=== PATIENT | male | born 1935 | race Caucasian/White ===

== ENCOUNTER 2021-12-28 11:10 | Inpatient (IN) | payer MEDICARE, OTHER ==
[~2021-12-28] VITALS: Ht 165.1 cm; Wt 87.5 kg
[2021-12-28] MEDS ORDERED: LISINOPRIL5 MG PO (11:50)
[2021-12-28] MEDS ORDERED: METOPROLOL TART50 MG PO (11:50)
[2021-12-28] MEDS ORDERED: ASPIRIN81 MG PO (11:50)
[2021-12-28] MEDS ORDERED: FOLIC ACID0.4 MG PO (11:50)
[2021-12-28] MEDS ORDERED: POTASSIUM CHLO10 ME1 PO (11:50)
[2021-12-28] MEDS ORDERED: B12 ACTIVE1000 MCG PO (11:50)
[2021-12-28] MEDS ORDERED: FUROSEMIDE40 MG PO (11:54)
[2021-12-28] MEDS ORDERED: SIMVASTATIN40 MG PO (11:54)
[2021-12-28] MEDS ORDERED: CLOPIDOGREL75 MG PO (11:54)
[2021-12-28] MEDS ORDERED: QUETIAPINE FUMA25 MG PO ×2 (11:54)
[2021-12-28] MEDS ORDERED: GLIPIZIDE ER5 MG PO (11:54)
[2021-12-28] MEDS ORDERED: METFORMIN HCL500 MG PO (11:54)
[2021-12-28] MEDS ORDERED: LEVOTHYROXINE75 MCG PO (11:54)
[2021-12-28 11:59] LABS: BASOPHILS % 0.5 % (0.0-1.0); EOSINOPHILS # (AUTO) 0.1 (0.0-0.4); EOSINOPHILS % 1.6 % (0.0-6.0); HEMOGLOBIN 15.4 g/dL (14.0-18.0); LYMPHOCYTES # (AUTO) 1.2 (1.0-3.2); LYMPHOCYTES % 15.2 % (18.0-39.1); MEAN CORPUSCULAR HEMOGLOBIN 30.4 pg (28-32); MEAN CORPUSCULAR HGB CONC 32.1 g/dL (31-35); MEAN CORPUSCULAR VOLUME 94.7 fL (81-99); MONOCYTES # (AUTO) 1.2 (0.2-0.8); MONOCYTES % 15.1 % (4.4-11.3); NEUTROPHILS # (AUTO) 5.1 (2.1-6.9); NEUTROPHILS % 67.1 % (38.7-80.0); PLATELET COUNT 239 x10e3/uL (140-360); RED BLOOD COUNT 5.07 x10e6/uL (4.3-5.7); RED CELL DISTRIBUTION WIDTH 16.4 % (11.7-14.4)
[2021-12-28 12:10] LABS: INR 1.16; PROTHROMBIN TIME 15.8 seconds (11.9-14.5)
[2021-12-28 12:11] LABS: PARTIAL THROMBOPLASTIN TIME 53.9 seconds (23.8-35.5)
[2021-12-28] MEDS ORDERED: LIDOCAINE JELLY 2% 10ML URO-JET ONE (12:13)
[2021-12-28] MEDS ORDERED: LIDOCAINE JELLY 2% 10ML URO-JET TOP ONE (12:15)
[2021-12-28 12:22] LABS: ALBUMIN 3.3 g/dL (3.5-5.0); ALBUMIN/GLOBULIN RATIO 0.8 (0.8-2.0); ANION GAP 17.6 mmol/L (8-16); CALCIUM 9.5 mg/dL (8.4-10.2); CREATININE, SERUM 2.31 mg/dL (0.72-1.25); POTASSIUM 4.6 mmol/L (3.5-5.1)
[2021-12-28 12:31] LABS: CREATINE KINASE MB 1.7 ng/mL (0-5.0)
[2021-12-28 12:44] LABS: CLARITY,URINE CLEAR (CLEAR); COLOR,URINE YELLOW (YELLOW); LEUKOCYTE ESTERASE ,URINE NEGATIVE (NEGATIVE); NITRITE,URINE NEGATIVE (NEGATIVE)
[2021-12-28 12:45] LABS: KETONES,URINE NEGATIVE (NEGATIVE); PROTEIN,URINE DIPSTICK 1+ (NEGATIVE); URINE UROBILINOGEN 0.2 mg/dL (0.2 - 1)
[2021-12-28] MEDS ORDERED: FUROSEMIDE INJ 10 MG/ML 4 ML VIAL IV ONE (13:00)
[2021-12-28 13:05] LABS: BACTERIA,URINE MODERATE /HPF; EPITHELIAL CELLS,URINE FEW /LPF; RENAL EPITHELIAL CELLS,URINE FEW; WBC,URINE (MAN) 0-5 /HPF (0-5)
[2021-12-28] MEDS ORDERED: ONDANSETRON HCL INJ 2MG/ML 2ML 2 MG/ML VIAL IV PRN (13:15)
[2021-12-28] MEDS: NYSTATIN 15 GM POWDER UD BTL TOP SCH (17:00)
[2021-12-28 18:00] VITALS: BP 117/75
[2021-12-28 18:02] VITALS: BP 117/75
[2021-12-28] MEDS ORDERED: vitamin d3 PO (18:12)
[2021-12-28] MEDS ORDERED: fenofibrate PO (18:12)
[2021-12-28 18:17] VITALS: BP 117/75
[2021-12-28 18:33] LABS: CREATINE KINASE MB 1.5 ng/mL (0-5.0)
[2021-12-28] MEDS ORDERED: METOPROLOL TARTRATE 50 MG TAB PO ONE (19:00)
[2021-12-28 19:30] VITALS: BP 110/78
[2021-12-28] MEDS: HYDROCODONE/APAP 5MG-325MG TAB PO PRN (19:58)
[2021-12-28] MEDS: FUROSEMIDE INJ 10 MG/ML 4 ML VIAL IV SCH (19:58)
[2021-12-29] VITALS (8 sets, daily range): BP systolic 96–129; BP diastolic 73–97
[2021-12-29 00:38] LABS: CREATINE KINASE MB 1.3 ng/mL (0-5.0)
[2021-12-29] MEDS: HYDROCODONE/APAP 5MG-325MG TAB PO PRN ×5 (00:48→22:35)
[2021-12-29 06:25] LABS: BASOPHILS % 0.4 % (0.0-1.0); EOSINOPHILS # (AUTO) 0.1 (0.0-0.4); EOSINOPHILS % 1.5 % (0.0-6.0); HEMATOCRIT 45.6 % (38.2-49.6); LYMPHOCYTES # (AUTO) 1.3 (1.0-3.2); LYMPHOCYTES % 17.8 % (18.0-39.1); MEAN CORPUSCULAR HEMOGLOBIN 30.5 pg (28-32); MEAN CORPUSCULAR HGB CONC 32.9 g/dL (31-35); MEAN CORPUSCULAR VOLUME 92.7 fL (81-99); MONOCYTES # (AUTO) 1.1 (0.2-0.8); MONOCYTES % 15.3 % (4.4-11.3); NEUTROPHILS # (AUTO) 4.7 (2.1-6.9); NEUTROPHILS % 64.3 % (38.7-80.0); PLATELET COUNT 234 x10e3/uL (140-360); RED BLOOD COUNT 4.92 x10e6/uL (4.3-5.7); RED CELL DISTRIBUTION WIDTH 16.3 % (11.7-14.4)
[2021-12-29 06:55] LABS: ALBUMIN 3.1 g/dL (3.5-5.0); ALBUMIN/GLOBULIN RATIO 0.8 (0.8-2.0); ANION GAP 18.3 mmol/L (8-16); CALCIUM 9.1 mg/dL (8.4-10.2); CHOL/HDL RATIO 3.9 (3.9-4.7); CREATININE, SERUM 2.38 mg/dL (0.72-1.25); POTASSIUM 4.3 mmol/L (3.5-5.1)
[2021-12-29 07:22] LABS: CREATINE KINASE MB 1.3 ng/mL (0-5.0)
[2021-12-29] MEDS: METOPROLOL TARTRATE 50 MG TAB PO SCH ×2 (09:00→17:36)
[2021-12-29] MEDS: FUROSEMIDE INJ 10 MG/ML 4 ML VIAL IV SCH ×2 (09:02→21:36)
[2021-12-29] MEDS: NYSTATIN 15 GM POWDER UD BTL TOP SCH ×2 (09:08→17:33)
[2021-12-30] VITALS (8 sets, daily range): BP systolic 106–134; BP diastolic 60–85
[2021-12-30] MEDS: LEVOTHYROXINE SODIUM 75 MCG TAB PO SCH (05:20)
[2021-12-30 06:28] LABS: BASOPHILS # (AUTO) 0.1 (0.0-0.1); BASOPHILS % 0.8 % (0.0-1.0); EOSINOPHILS # (AUTO) 0.3 (0.0-0.4); HEMATOCRIT 47.7 % (38.2-49.6); HEMOGLOBIN 15.1 g/dL (14.0-18.0); LYMPHOCYTES # (AUTO) 1.5 (1.0-3.2); LYMPHOCYTES % 21.1 % (18.0-39.1); MEAN CORPUSCULAR HEMOGLOBIN 30.3 pg (28-32); MEAN CORPUSCULAR HGB CONC 31.7 g/dL (31-35); MEAN CORPUSCULAR VOLUME 95.8 fL (81-99); MONOCYTES # (AUTO) 1.1 (0.2-0.8); MONOCYTES % 15.7 % (4.4-11.3); NEUTROPHILS # (AUTO) 4.1 (2.1-6.9); NEUTROPHILS % 58.1 % (38.7-80.0); PLATELET COUNT 220 x10e3/uL (140-360); RED BLOOD COUNT 4.98 x10e6/uL (4.3-5.7); RED CELL DISTRIBUTION WIDTH 16.5 % (11.7-14.4)
[2021-12-30 07:08] LABS: ANION GAP 17.1 mmol/L (8-16); CALCIUM 9.1 mg/dL (8.4-10.2); CREATININE, SERUM 2.27 mg/dL (0.72-1.25); POTASSIUM 4.1 mmol/L (3.5-5.1)
[2021-12-30] MEDS: FUROSEMIDE INJ 10 MG/ML 4 ML VIAL IV SCH ×2 (09:00→21:41)
[2021-12-30] MEDS: METOPROLOL TARTRATE 50 MG TAB PO SCH ×2 (09:05→16:28)
[2021-12-30] MEDS: NYSTATIN 15 GM POWDER UD BTL TOP SCH ×2 (09:09→16:33)
[2021-12-30] MEDS: HYDROCODONE/APAP 5MG-325MG TAB PO PRN ×2 (09:54→21:42)
[2021-12-30] MEDS ORDERED: ONDANSETRON HCL 4 MG ORAL DISINTEGRATING TAB PO PRN (11:30)
[2021-12-30 19:17] LABS: CREATININE,URINE RANDOM 40.57 mg/dL (63-166); TOTAL PROTEIN 24HR, URINE 281.1 mg/24hr (50-100); TOTAL PROTEIN, URINE 16.3 mg/dL (1-14)
[2021-12-31] VITALS (18 sets, daily range): BP systolic 104–126; BP diastolic 65–91
[2021-12-31] MEDS: LEVOTHYROXINE SODIUM 75 MCG TAB PO SCH (05:40)
[2021-12-31] MEDS: HYDROCODONE/APAP 5MG-325MG TAB PO PRN ×3 (05:40→17:53)
[2021-12-31 06:40] LABS: BASOPHILS # (AUTO) 0.1 (0.0-0.1); BASOPHILS % 0.7 % (0.0-1.0); EOSINOPHILS # (AUTO) 0.2 (0.0-0.4); EOSINOPHILS % 3.3 % (0.0-6.0); HEMATOCRIT 43.7 % (38.2-49.6); HEMOGLOBIN 14.7 g/dL (14.0-18.0); LYMPHOCYTES # (AUTO) 1.1 (1.0-3.2); LYMPHOCYTES % 15.7 % (18.0-39.1); MEAN CORPUSCULAR HEMOGLOBIN 30.3 pg (28-32); MEAN CORPUSCULAR HGB CONC 33.6 g/dL (31-35); MEAN CORPUSCULAR VOLUME 90.1 fL (81-99); MONOCYTES % 13.4 % (4.4-11.3); NEUTROPHILS # (AUTO) 4.7 (2.1-6.9); NEUTROPHILS % 66.6 % (38.7-80.0); PLATELET COUNT 216 x10e3/uL (140-360); RED BLOOD COUNT 4.85 x10e6/uL (4.3-5.7); RED CELL DISTRIBUTION WIDTH 16.1 % (11.7-14.4)
[2021-12-31 07:03] LABS: CALCIUM 9.1 mg/dL (8.4-10.2); CREATININE, SERUM 2.09 mg/dL (0.72-1.25)
[2021-12-31] MEDS: FUROSEMIDE INJ 10 MG/ML 4 ML VIAL IV SCH ×2 (08:07→21:05)
[2021-12-31] MEDS: METOPROLOL TARTRATE 50 MG TAB PO SCH ×2 (08:08→18:15)
[2021-12-31] MEDS: ACETYLCYSTEINE 200 MG/ML 4ML VIAL PO SCH ×2 (08:14→18:14)
[2021-12-31] MEDS: NYSTATIN 15 GM POWDER UD BTL TOP SCH ×2 (09:56→17:00)
[2021-12-31] MEDS ORDERED: DIPHENHYDRAMINE HCL INJ 50 MG/ML VIAL ONE (15:20)
[2021-12-31] MEDS ORDERED: HEPARIN SOD/SOD CHLORIDE 2,000 ML ONE (16:03)
[2021-12-31] MEDS ORDERED: FENTANYL CITRATE/PF 100MCG/2 ML INJ ONE (16:03)
[2021-12-31] MEDS ORDERED: LIDOCAINE HCL 2% LOCAL 20 ML VIAL ONE (16:03)
[2021-12-31] MEDS ORDERED: MIDAZOLAM HCL 2 MG/2 ML VIAL ONE (16:03)
[2021-12-31] MEDS ORDERED: SODIUM CHLORIDE 0.9% 1000ML 1,000 ML ONE (16:04)
[2021-12-31] MEDS ORDERED: IOPAMIDOL 370 MG/ML 100 ML INFUS..BTL INJ ONE (16:04)
[2021-12-31] MEDS ORDERED: HYDROCODONE/APAP 5MG-325MG TAB ONE (18:02)
[2021-12-31] MEDS ORDERED: ACETYLCYSTEINE 200 MG/ML 4ML VIAL PO SCH (21:00)
[2022-01-01] VITALS (7 sets, daily range): BP systolic 107–142; BP diastolic 77–107
[2022-01-01] MEDS: LEVOTHYROXINE SODIUM 75 MCG TAB PO SCH (05:54)
[2022-01-01 07:02] LABS: BASOPHILS # (AUTO) 0.1 (0.0-0.1); BASOPHILS % 0.7 % (0.0-1.0); EOSINOPHILS # (AUTO) 0.1 (0.0-0.4); EOSINOPHILS % 1.3 % (0.0-6.0); HEMATOCRIT 43.6 % (38.2-49.6); HEMOGLOBIN 14.7 g/dL (14.0-18.0); LYMPHOCYTES # (AUTO) 1.1 (1.0-3.2); LYMPHOCYTES % 13.2 % (18.0-39.1); MEAN CORPUSCULAR HEMOGLOBIN 30.3 pg (28-32); MEAN CORPUSCULAR HGB CONC 33.7 g/dL (31-35); MEAN CORPUSCULAR VOLUME 89.9 fL (81-99); MONOCYTES # (AUTO) 1.2 (0.2-0.8); MONOCYTES % 14.7 % (4.4-11.3); NEUTROPHILS # (AUTO) 5.7 (2.1-6.9); NEUTROPHILS % 69.6 % (38.7-80.0); PLATELET COUNT 218 x10e3/uL (140-360); RED BLOOD COUNT 4.85 x10e6/uL (4.3-5.7)
[2022-01-01 07:12] LABS: ANION GAP 15.7 mmol/L (8-16); CREATININE, SERUM 2.13 mg/dL (0.72-1.25); POTASSIUM 3.7 mmol/L (3.5-5.1)
[2022-01-01] MEDS: FUROSEMIDE INJ 10 MG/ML 4 ML VIAL IV SCH ×2 (08:00→21:13)
[2022-01-01] MEDS ORDERED: MIDAZOLAM HCL 2 MG/2 ML VIAL ONE ×2 (08:53→10:36)
[2022-01-01] MEDS ORDERED: GENTAMICIN SULFATE 40 MG/ML 2 ML VIAL ONE (08:53)
[2022-01-01] MEDS ORDERED: SODIUM CHLORIDE 0.9% 250ML 250 ML ONE (08:54)
[2022-01-01] MEDS ORDERED: SODIUM CHLORIDE 0.9% 1000ML 2,000 ML ONE (08:54)
[2022-01-01] MEDS ORDERED: Vancomycin IV 1 GM VIAL ONE (08:54)
[2022-01-01] MEDS ORDERED: FENTANYL CITRATE/PF 100MCG/2 ML INJ ONE (08:54)
[2022-01-01] MEDS ORDERED: LIDOCAINE HCL 2% LOCAL 20 ML VIAL ONE ×2 (08:55→09:15)
[2022-01-01] MEDS ORDERED: SODIUM CHLORIDE 0.9% 1000ML 1,000 ML ONE (08:59)
[2022-01-01] MEDS: NYSTATIN 15 GM POWDER UD BTL TOP SCH ×2 (09:00→18:00)
[2022-01-01] MEDS: ACETYLCYSTEINE 200 MG/ML 4ML VIAL PO SCH ×2 (16:45→20:02)
[2022-01-01] MEDS: HYDROCODONE/APAP 5MG-325MG TAB PO PRN (20:02)
[2022-01-02] VITALS (7 sets, daily range): BP systolic 112–137; BP diastolic 59–73
[2022-01-02] MEDS: HYDROCODONE/APAP 5MG-325MG TAB PO PRN ×5 (00:21→23:41)
[2022-01-02] MEDS: LEVOTHYROXINE SODIUM 75 MCG TAB PO SCH (05:00)
[2022-01-02 06:12] LABS: BASOPHILS % 0.3 % (0.0-1.0); EOSINOPHILS # (AUTO) 0.1 (0.0-0.4); EOSINOPHILS % 0.9 % (0.0-6.0); HEMATOCRIT 40.7 % (38.2-49.6); HEMOGLOBIN 13.8 g/dL (14.0-18.0); LYMPHOCYTES % 8.5 % (18.0-39.1); MEAN CORPUSCULAR HEMOGLOBIN 30.7 pg (28-32); MEAN CORPUSCULAR HGB CONC 33.9 g/dL (31-35); MEAN CORPUSCULAR VOLUME 90.6 fL (81-99); MONOCYTES # (AUTO) 1.7 (0.2-0.8); NEUTROPHILS % 75.9 % (38.7-80.0); PLATELET COUNT 182 x10e3/uL (140-360); RED BLOOD COUNT 4.49 x10e6/uL (4.3-5.7); RED CELL DISTRIBUTION WIDTH 16.1 % (11.7-14.4)
[2022-01-02 06:49] LABS: ANION GAP 13.6 mmol/L (8-16); CALCIUM 8.6 mg/dL (8.4-10.2); CREATININE, SERUM 2.08 mg/dL (0.72-1.25); POTASSIUM 3.6 mmol/L (3.5-5.1)
[2022-01-02] MEDS: METOPROLOL SUCCINATE 50 MG TAB XL PO SCH (08:48)
[2022-01-02] MEDS: FUROSEMIDE INJ 10 MG/ML 4 ML VIAL IV SCH (08:48)
[2022-01-02] MEDS: NYSTATIN 15 GM POWDER UD BTL TOP SCH ×2 (08:55→17:05)
[2022-01-02] MEDS: DIPHENHYDRAMINE HCL INJ 50 MG/ML VIAL IV PRN (12:55)
[2022-01-02] MEDS ORDERED: DEXTROSE 50% SYRINGE 50 ML IV PRN (16:45)
[2022-01-02] MEDS: FUROSEMIDE 40 MG TAB PO SCH (17:01)
[2022-01-02] MEDS: INSULIN LISPRO 100 UNIT/1 ML 3ML VIAL SQ SCH (21:28)
[2022-01-03] VITALS (8 sets, daily range): BP systolic 106–133; BP diastolic 64–82
[2022-01-03 05:41] LABS: BASOPHILS # (AUTO) 0.1 (0.0-0.1); BASOPHILS % 0.6 % (0.0-1.0); EOSINOPHILS # (AUTO) 0.2 (0.0-0.4); EOSINOPHILS % 2.8 % (0.0-6.0); HEMOGLOBIN 13.1 g/dL (14.0-18.0); LYMPHOCYTES # (AUTO) 1.2 (1.0-3.2); LYMPHOCYTES % 14.2 % (18.0-39.1); MEAN CORPUSCULAR HEMOGLOBIN 30.7 pg (28-32); MEAN CORPUSCULAR HGB CONC 34.5 g/dL (31-35); MONOCYTES # (AUTO) 1.3 (0.2-0.8); MONOCYTES % 14.8 % (4.4-11.3); NEUTROPHILS # (AUTO) 5.8 (2.1-6.9); NEUTROPHILS % 67.1 % (38.7-80.0); PLATELET COUNT 178 x10e3/uL (140-360); RED BLOOD COUNT 4.27 x10e6/uL (4.3-5.7)
[2022-01-03] MEDS: FUROSEMIDE 40 MG TAB PO SCH ×2 (05:51→18:00)
[2022-01-03] MEDS: LEVOTHYROXINE SODIUM 75 MCG TAB PO SCH (05:51)
[2022-01-03 06:09] LABS: ANION GAP 16.7 mmol/L (8-16); CALCIUM 8.5 mg/dL (8.4-10.2); CREATININE, SERUM 1.93 mg/dL (0.72-1.25); POTASSIUM 3.7 mmol/L (3.5-5.1)
[2022-01-03] MEDS: HYDROCODONE/APAP 5MG-325MG TAB PO PRN ×2 (07:44→23:13)
[2022-01-03] MEDS: METOPROLOL SUCCINATE 50 MG TAB XL PO SCH (07:44)
[2022-01-03] MEDS: NYSTATIN 15 GM POWDER UD BTL TOP SCH ×2 (07:45→18:03)
[2022-01-03] MEDS: INSULIN LISPRO 100 UNIT/1 ML 3ML VIAL SQ SCH ×4 (07:51→21:00)
[2022-01-03] MEDS: DIPHENHYDRAMINE HCL INJ 50 MG/ML VIAL IV PRN ×2 (10:28→21:13)
[2022-01-04] VITALS (7 sets, daily range): BP systolic 100–128; BP diastolic 59–78
[2022-01-04] MEDS: TRAZODONE HCL 50 MG TAB PO SCH ×2 (02:02→22:49)
[2022-01-04] MEDS: LEVOTHYROXINE SODIUM 75 MCG TAB PO SCH (06:09)
[2022-01-04] MEDS: FUROSEMIDE 40 MG TAB PO SCH ×2 (06:09→17:38)
[2022-01-04] MEDS: HYDROCODONE/APAP 5MG-325MG TAB PO PRN ×2 (06:12→15:28)
[2022-01-04 06:57] LABS: BASOPHILS % 0.5 % (0.0-1.0); EOSINOPHILS # (AUTO) 0.3 (0.0-0.4); EOSINOPHILS % 3.9 % (0.0-6.0); HEMATOCRIT 37.5 % (38.2-49.6); HEMOGLOBIN 12.7 g/dL (14.0-18.0); LYMPHOCYTES # (AUTO) 1.5 (1.0-3.2); LYMPHOCYTES % 19.9 % (18.0-39.1); MEAN CORPUSCULAR HEMOGLOBIN 30.5 pg (28-32); MEAN CORPUSCULAR HGB CONC 33.9 g/dL (31-35); MEAN CORPUSCULAR VOLUME 90.1 fL (81-99); MONOCYTES # (AUTO) 1.2 (0.2-0.8); MONOCYTES % 15.7 % (4.4-11.3); NEUTROPHILS # (AUTO) 4.4 (2.1-6.9); NEUTROPHILS % 59.6 % (38.7-80.0); PLATELET COUNT 179 x10e3/uL (140-360); RED BLOOD COUNT 4.16 x10e6/uL (4.3-5.7); RED CELL DISTRIBUTION WIDTH 16.2 % (11.7-14.4)
[2022-01-04 07:19] LABS: ANION GAP 14.8 mmol/L (8-16); CALCIUM 8.6 mg/dL (8.4-10.2); CREATININE, SERUM 1.86 mg/dL (0.72-1.25); POTASSIUM 3.8 mmol/L (3.5-5.1)
[2022-01-04] MEDS: INSULIN LISPRO 100 UNIT/1 ML 3ML VIAL SQ SCH ×4 (07:30→22:55)
[2022-01-04] MEDS: METOPROLOL SUCCINATE 50 MG TAB XL PO SCH (09:00)
[2022-01-04] MEDS: NYSTATIN 15 GM POWDER UD BTL TOP SCH (09:21)
[2022-01-05] VITALS (9 sets, daily range): BP systolic 107–128; BP diastolic 67–92
[2022-01-05] MEDS: HYDROCODONE/APAP 5MG-325MG TAB PO PRN ×2 (06:07→17:10)
[2022-01-05] MEDS: FUROSEMIDE 40 MG TAB PO SCH ×2 (06:08→18:30)
[2022-01-05] MEDS: LEVOTHYROXINE SODIUM 75 MCG TAB PO SCH (06:08)
[2022-01-05] MEDS: INSULIN LISPRO 100 UNIT/1 ML 3ML VIAL SQ SCH ×4 (07:45→22:45)
[2022-01-05] MEDS: METOPROLOL SUCCINATE 50 MG TAB XL PO SCH (09:15)
[2022-01-05] MEDS: AMIODARONE HCL 200 MG TAB PO SCH (14:45)
[2022-01-05] MEDS: TRAZODONE HCL 50 MG TAB PO SCH (22:44)
[2022-01-06] VITALS (7 sets, daily range): BP systolic 100–125; BP diastolic 63–92
[2022-01-06] MEDS: HYDROCODONE/APAP 5MG-325MG TAB PO PRN ×2 (03:15→08:56)
[2022-01-06] MEDS: LEVOTHYROXINE SODIUM 75 MCG TAB PO SCH (06:02)
[2022-01-06] MEDS: FUROSEMIDE 40 MG TAB PO SCH ×2 (06:02→18:00)
[2022-01-06 07:09] LABS: ANION GAP 13.8 mmol/L (8-16); CALCIUM 8.8 mg/dL (8.4-10.2); CREATININE, SERUM 2.1 mg/dL (0.72-1.25); POTASSIUM 3.8 mmol/L (3.5-5.1)
[2022-01-06] MEDS: INSULIN LISPRO 100 UNIT/1 ML 3ML VIAL SQ SCH ×4 (07:45→21:21)
[2022-01-06] MEDS: DOCUSATE SODIUM 100 MG CAP PO SCH (08:55)
[2022-01-06] MEDS: AMIODARONE HCL 200 MG TAB PO SCH (08:55)
[2022-01-06] MEDS: METOPROLOL SUCCINATE 50 MG TAB XL PO SCH (08:55)
[2022-01-06] MEDS ORDERED: SIMVASTATIN 40 MG TAB PO SCH (21:00)
[2022-01-06] MEDS: TRAZODONE HCL 50 MG TAB PO SCH (21:08)
[2022-01-07 00:10] VITALS: BP 124/68
[2022-01-07 01:15] VITALS: BP 107/78
[2022-01-07 05:20] VITALS: BP 118/79
[2022-01-07] MEDS: LEVOTHYROXINE SODIUM 75 MCG TAB PO SCH (06:10)
[2022-01-07] MEDS: FUROSEMIDE 40 MG TAB PO SCH (06:10)
[2022-01-07 08:18] VITALS: BP 154/76
[2022-01-07] MEDS: AMIODARONE HCL 200 MG TAB PO SCH (09:55)
[2022-01-07] MEDS: HYDROCODONE/APAP 5MG-325MG TAB PO PRN ×2 (09:55→13:15)
[2022-01-07] MEDS: METOPROLOL SUCCINATE 50 MG TAB XL PO SCH (09:58)
[2022-01-07] MEDS: DOCUSATE SODIUM 100 MG CAP PO SCH (09:58)
[2022-01-07] MEDS ORDERED: AMIODARONE HCL200 MG PO (10:05)
[2022-01-07] MEDS ORDERED: TOPROL XL50 MG PO (10:05)
[2022-01-07 12:31] VITALS: BP 104/87
== END 2022-01-07 13:05 | disposition home or self-care (01) | DRG 226 ==
LOC: ER 11:14 → ERHOLD 13:09 → MED/SURG3 17:40
PROVIDERS: ADMIT Internal Medicine; ATTEND Internal Medicine
PROC: 0JH609Z Insertion of Cardiac Resynchronization Defibrillator Pulse Generator into Chest Subcutaneous Tissue and Fascia, Open Approach (ICD-10-PCS; principal; 2022-01-01)
PROC: 02HK3KZ Insertion of Defibrillator Lead into Right Ventricle, Percutaneous Approach (ICD-10-PCS; 2022-01-01)
PROC: 02H63KZ Insertion of Defibrillator Lead into Right Atrium, Percutaneous Approach (ICD-10-PCS; 2022-01-01)
PROC: 02PA3MZ Removal of Cardiac Lead from Heart, Percutaneous Approach (ICD-10-PCS; 2022-01-01)
PROC: 0JPT0PZ Removal of Cardiac Rhythm Related Device from Trunk Subcutaneous Tissue and Fascia, Open Approach (ICD-10-PCS; 2022-01-01)
DX: I44.1 Atrioventricular block, second degree (principal); G93.41 Metabolic encephalopathy; I50.23 Acute on chronic systolic (congestive) heart failure; N17.9 Acute kidney failure, unspecified; I13.0 Hypertensive heart and chronic kidney disease with heart failure and stage 1 through stage 4 chronic kidney disease, or unspecified chronic kidney disease; F39 Unspecified mood [affective] disorder; I35.0 Nonrheumatic aortic (valve) stenosis; I25.10 Atherosclerotic heart disease of native coronary artery without angina pectoris; Z95.1 Presence of aortocoronary bypass graft; I48.0 Paroxysmal atrial fibrillation; N18.30 Chronic kidney disease, stage 3 unspecified; R31.9 Hematuria, unspecified; E03.9 Hypothyroidism, unspecified; E11.22 Type 2 diabetes mellitus with diabetic chronic kidney disease; R60.0 Localized edema; E78.49 Other hyperlipidemia; E11.69 Type 2 diabetes mellitus with other specified complication; I49.3 Ventricular premature depolarization; Z87.891 Personal history of nicotine dependence; I25.2 Old myocardial infarction; Z20.822 Contact with and (suspected) exposure to COVID-19
CPT/HCPCS: 33224; 33225; 33249; 36415; 51700; 71045; 75820; 76770; 76937; 80048; 80053; 80061; 81001; 81050; 82550; 82553; 82570; 82948; 83735; 83880; 84156; 84484; 85025; 85610; 85730; 93005; 93306; 93455; 94799; 96372; 97139; 99152; 99153; 99251; 99284; C1760; C1763; C1769; C1777; C1882; C1887; C1900; J1200; J1580; J1940; J2001; J2250; J3010; J3370; J7030; J7050; Q0162; Q9967